=== PATIENT | male | born 1980 | race Caucasian/White ===

== ENCOUNTER 2019-06-27 15:51 | Emergency (ER) | payer SELFPAY ==
[2019-06-27 15:53] VITALS: BP 132/84; PULSE 123; RESP 14; TEMP 37.2; O2SAT 97; BMI 31.0
[2019-06-27 16:52] VITALS: PULSE 90
--- NOTE | 2019-06-27 19:22 | ED.EXTPRO ---
HPI - Extremity Problem <DAINA Barrera-BC - Last Filed: 06/27/19 19:26> General Chief complaint: Extremity Problem,Nontraumatic Stated complaint: rt arm numbness, pain Time Seen by Provider: 06/27/19 16:26 Source: patient Mode of arrival: Ambulatory Limitations: no limitations History of Present Illness HPI Narrative: The patient is a 38-year-old male with history of bilateral carpal tunnel syndrome, with scheduled surgery 3 weeks. He states that he has had x-rays, MRIs, nerve conduction testing completed. He states that [place] is from [place] of town, is having trouble controlling his pain. He states that he has numbness and tingling on the 2nd and 3rd digits on palmar sides bilaterally. He denies any trauma. He is currently taking 1200 mg of gabapentin 3 times a day. He is also taking Tylenol, Motrin, last dose 600 mg just prior to arrival. He has previously done burst of steroids, which she has found helpful. Last done 5 months ago.bad he cannot sleep, electric burning type pain that correlates with previous history of carpal tunnel syndrome. Related Data Previous Rx's Medication Instructions Recorded hydrocodone-acetaminophen [[place]] 1 tab PO Q6H PRN #3 tab 06/27/19 prednisone 40 mg PO DAILY #10 tab 06/27/19 Allergies Allergy/AdvReac Type Severity Reaction Status Date / Time No Known Drug Allergies Allergy Verified 06/27/19 15:58 Review of Systems <RADHA Barrera - Last Filed: 06/27/19 19:26> Review of Systems Narrative: GENERAL: Denies chills, fatigue, malaise, fever, sweats. HEENT: Denies sinus pain, ear pain, sore throat, difficulty swallowing, dizziness. RESPIRATORY: Denies dyspnea, cough, wheezing, hemoptysis, sputum. CARDIOVASCULAR: Denies chest pain, palpitations, orthopnea, edema, GASTROINTESTINAL: Denies nausea, vomiting, abdominal pain, diarrhea, constipation, melena. : Denies dysuria, frequency, incontinence, hematuria, urinary retention. MUSCULOSKELETAL: See HPI SKIN: Denies rash, skin lesions, or other NEUROLOGIC: Denies weakness, headache, numbness, change in speech, confusion, seizures, incoordination. PSYCHIATRIC: No concerning psychosocial issues. 12 point review of systems is negative except for those stated above Patient History <LEENA Barrera - Last Filed: 06/27/19 19:26> Social History Smoking Status: Unknown if ever smoked Smoking Status: Unknown if ever smoked alcohol intake frequency: holidays/special occasions only Substance Use Type: does not use Exam <LEENA Barrera - Last Filed: 06/27/19 19:26> Narrative Exam Narrative: GENERAL: This is a well-nourished, well-developed patient, in no acute distress HEAD: Atraumatic. Normocephalic. No temporal or scalp tenderness. EYES: Pupils equal round and reactive. Extraocular motions intact. No scleral icterus. No injection or drainage. ENT: Nose without bleeding, purulent drainage or septal hematoma. Throat without erythema, tonsillar hypertrophy or exudate. Uvula midline. Airway patent. NECK: Trachea midline. No JVD or lymphadenopathy. Supple, nontender, no meningeal signs. CARDIOVASCULAR: Regular rate and rhythm RESPIRATORY: No increased respiratory effort. No accessory muscle use. Speaking full sentences. EXTREMITIES: Generalized pain to palpation on palmar side of digits 2 and 3 bilaterally. Positive radial pulses bilaterally. Capillary refill less than 2 seconds all fingers. BACK: Nontender without deformity or crepitance. No flank tenderness. NEURO: AOx3. See musculoskeletal exam SKIN: No rash or erythema on visible skin Initial Vital Signs Initial Vital Signs: Vital Signs Temperature 98.9 F 06/27/19 15:53 Pulse Rate 123 H 06/27/19 15:53 Respiratory Rate 14 06/27/19 15:53 Blood Pressure 132/84 06/27/19 15:53 Pulse Oximetry 97 06/27/19 15:53 <Naa Shi MD - Last Filed: 06/29/19 03:13> Initial Vital Signs Initial Vital Signs: Vital Signs Temperature 98.9 F 06/27/19 15:53 Pulse Rate 123 H 06/27/19 15:53 Respiratory Rate 14 06/27/19 15:53 Blood Pressure 132/84 06/27/19 15:53 Pulse Oximetry 97 06/27/19 15:53 Scores <LEENA Barrera - Last Filed: 06/27/19 19:26> GCS Britton coma scale eye opening: Spontaneous Dante coma scale verbal response: Orientated Britton coma scale motor response: Obey commands Britton coma scale total score: 15 Course <RADHA BarreraBC - Last Filed: 06/27/19 19:26> Vital Signs Vital signs: Vital Signs - 8 hr 06/27/19 15:53 06/27/19 16:52 Temperature 98.9 F Pulse Rate 123 H Pulse Rate [Bilateral Radial] 90 Respiratory Rate 14 Blood Pressure 132/84 Pulse Oximetry 97 <Naa Shi MD - Last Filed: 06/29/19 03:13> Vital Signs Vital signs: Vital Signs - 8 hr 06/27/19 15:53 06/27/19 16:52 Temperature 98.9 F Pulse Rate 123 H Pulse Rate [Bilateral Radial] 90 Respiratory Rate 14 Blood Pressure 132/84 Pulse Oximetry 97 MDM - Extremity (Nontraumatic) <DAINA Barrera-BC - Last Filed: 06/27/19 19:26> MDM Narrative Medical decision making narrative: The patient is a 38-year-old male who presents with a chief complaint of carpal tunnel syndrome pain. He has not had a burst of steroids and months, as we discussed doing that today. The patient requested something to help him sleep, so I sent in a very small limited prescription of [place] to help with his pain at night. I discussed that we will not general prescribe narcotics in this emergency department for chronic pain in that he could not expect any refills of this. I discussed at length the importance of following up with primary care provider, following up with surgery as scheduled. Patient has no questions or concerns upon discharge and states understanding of return precautions as well as follow-up care. We discussed that narcotics can be constipating and sedating, to not take them with anything sedating. Discharge Plan Departure Patient Disposition: Home Clinical Impression: Bilateral carpal tunnel syndrome Discharge Date/Time: 06/27/19 17:33 Instructions: Carpal Tunnel Syndrome (Alternative Therapy), DI for Carpal Tunnel Syndrome Activity Restrictions/Additional Instructions: Thank you for trusting us with your care today. Please follow-up with primary care provider when you get back home. I sent in a burst of steroids for your carpal tunnel syndrome to [facility] in [place]. I also sent a very small prescription of narcotic to help your pain so you can sleep. You have been prescribed narcotic medications. While on these medications you cannot drive or operate heavy machinery. Additionally you cannot sign legal documents or perform any duties such as this. Many people get constipated on narcotic medications so it would be advisable to discuss stool softeners with the pharmacist when you picker and packer your prescription. Please understand that we cannot provide further refills of narcotics or controlled substances through the ED and your pain management will need to be through your Primary Care Provider Prescriptions: New prednisone 20 mg tablet 40 mg PO DAILY Qty: 10 RF: 0 hydrocodone-acetaminophen [[place]] 5-325 mg tablet 1 tab PO Q6H PRN (Reason: pain) Qty: 3 RF: 0
== END 2019-06-27 17:33 | disposition home or self-care (01) ==
PROVIDERS: Emergency Provider Nurse Practitioner Family
DX: G56.03 Carpal tunnel syndrome, bilateral upper limbs (principal)
CPT/HCPCS: 99281